=== PATIENT | female | born 1970 | race Caucasian/White ===

== ENCOUNTER → 2024-07-20 10:41 | Outpatient (BNVA) | payer BC, SELFPAY | PROVIDERS: PCP Family Medicine; Visit Provider Family Medicine ==

== ENCOUNTER → 2024-10-30 09:57 | Outpatient (BNVA) | payer BC, SELFPAY | PROVIDERS: PCP Family Medicine; Visit Provider Nurse Practitioner Family | DX: Z01.810 Encounter for preprocedural cardiovascular examination (principal); I35.0 Nonrheumatic aortic (valve) stenosis; Q23.81 Bicuspid aortic valve | CPT/HCPCS: 93005 ==

== ENCOUNTER 2024-12-26 08:21 | Outpatient (REF) | payer BC, SELFPAY ==
[2024-12-26 10:14] LABS: Anion Gap 11 (12-20); Blood Urea Nitrogen 13 mg/dL (9-16); Calcium 9.5 mg/dL (8.4-10.2); Carbon Dioxide 27 mmol/L (22-29); Chloride 110 mmol/L (96-108); Estimated Glomerular Filt Rate > 60; Glucose Fasting 90 mg/dL (60-99); Potassium 4.2 mmol/L (3.3-5.1); Sodium 144 mmol/L (135-145)
== END 2024-12-26 08:22 | disposition home or self-care (01) ==
LOC: HO.LAB 08:21
PROVIDERS: PCP Family Medicine; Visit Provider Family Medicine
DX: E03.9 Hypothyroidism, unspecified (principal)
CPT/HCPCS: 36415; 80048

== ENCOUNTER 2025-01-02 08:04 | Outpatient (REF) | payer BC, SELFPAY ==
[2025-01-02 08:47] LABS: Estimated Average Glucose 103 mg/dL; Hemoglobin A1C 129.0259 umol/L; Hemoglobin A1c % 5.2 % (<6.0)
[2025-01-02 09:55] LABS: Alanine Aminotransferase 12 U/L (0-31); Albumin Level 4.1 g/dL (3.5-5.0); Alkaline Phosphatase 66 U/L (39-117); Anion Gap 10 (12-20); Aspartate Amino Transferase 17 U/L (5-31); Bilirubin Total 0.7 mg/dL (0.0-1.0); Blood Urea Nitrogen 10 mg/dL (9-16); Calcium 9.3 mg/dL (8.4-10.2); Carbon Dioxide 27 mmol/L (22-29); Chloride 109 mmol/L (96-108); Estimated Glomerular Filt Rate > 60; Glucose Fasting 97 mg/dL (60-99); Potassium 3.9 mmol/L (3.3-5.1); Sodium 142 mmol/L (135-145); Total Protein 6.4 g/dL (6.5-8.0)
[2025-01-02 10:00] LABS: Free T4 (Free Thyroxine) 1.29 ng/dL (0.71-1.85); Thyroid Stimulating Hormone 0.03 uIU/mL (0.32-4.0)
[2025-01-04 04:13] LABS: Triiodothyronine T3 Total 111 ng/dL (76-181)
== END 2025-01-02 08:05 | disposition home or self-care (01) ==
LOC: HO.LAB 08:04
PROVIDERS: PCP Family Medicine; Visit Provider Family Medicine
DX: Z00.00 Encounter for general adult medical examination without abnormal findings (principal); E03.9 Hypothyroidism, unspecified; R73.01 Impaired fasting glucose
CPT/HCPCS: 36415; 80053; 83036; 84439; 84443; 84480

== ENCOUNTER 2025-01-04 12:40 | Outpatient (AMB) | payer BC, SELFPAY ==
--- NOTE | 2025-01-04 12:35 | MHC.PC.OV ---
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 Allergies No Known Allergies Allergy (Verified 01/04/25 12:36) Medication List - Last Reconciled 01/04/25 by Perry Holt MD aspirin (Ecotrin Low Strength) 81 mg PO DAILY atorvastatin 20 mg PO BEDTIME 30 days bisacodyl (Dulcolax (bisacodyl)) 10 mg (2 x 5 mg) PO BEDTIME bupropion HCl SR 200 mg PO DAILY 30 days citalopram 40 mg PO DAILY 90 days levothyroxine 88 mcg PO DAILY 90 days omeprazole 40 mg PO DAILY PRN ondansetron HCl 4 mg PO Q8H PRN polyethylene glycol 3350 (Miralax) 238 grams PO ONCE Zepbound (tirzepatide (weight loss)) 5 mg (0.5 mL) subcut QWEEK NS Zepbound (tirzepatide (weight loss)) 2.5 mg (0.5 mL) subcut QWEEK NS Tobacco use date assessed: 11/11/23 Dental Screening Dental Screen Date: 11/11/23 HPI Hypothyroidism (Adult) HPI Details Patient?presents?to?follow-up?hypothyroidism. TSH?is?still?suppressed?since?increasing levothyroxine?to?100?mcg?daily?(700?mcg?weekly) from?88?mcg?daily (616?mcg?weekly) Will?switch?her?back?to?88?mcg?tablets?and?she?will?take?1.5 tablets?on Saturdays (660?mcg?weekly). A1c?was?5.9%?and?she?has?started Zepbound?for?weight?control.??She?has?lost?over?19?lb. A1c?now?5.2%. Patient?also?notes?worsening?depression?and?anxiety. She?is?on?bupropion?and?citalopram. She?would?like?a?referral?to?discuss?other?medication?options. [facility] Medical History (Updated 12/04/24 @ 09:35 by Prema Yang) GERD (gastroesophageal reflux disease) B-cell lymphoma Surgical History (Updated 12/04/24 @ 09:35 by Prema Yang) History of tooth extraction [place] teeth extracted History of section History of partial hysterectomy Family History (System 12/04/24 @ 09:35 by Prema Yang) Father No problems noted. Mother Diabetes mellitus Liver cancer Brother No problems noted. Brother No problems noted. Brother No problems noted. Brother No problems noted. Sister No problems noted. Daughter No problems noted. Daughter No problems noted. Daughter No problems noted. 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 Current occupational exposures/hazards: No Cognitive needs: No Hearing needs: No Vision needs: No Female Reproductive History Menstrual Age of Menarche: 12 Questionnaire Thrive Questionnaire Date Thrive assessed: 09/25/24 GUSTAVO-7 AMB Questionnaire GUSTAVO-7 Date GUSTAVO - 7 assessed: 09/25/24 Source: Developed by Drs. Frank Banegas, Leatha Emmanuel, Enrique Iraheta and colleagues, with an educational becky from [employer]. Review of Systems Const Denies chills, Denies fatigue, Denies fever(s), Denies headache(s) and Denies weakness ENT Denies dizziness and Denies headache(s) Card Denies chest pain, Denies lightheadedness, Denies dyspnea and Denies other (Palpitations) Resp Denies cough, Denies dyspnea, Denies wheezing and Denies other ( shortness of breath) Musc Denies numbness and Denies tingling Neuro Denies dizziness, Denies headache(s), Denies numbness, Denies tingling, Denies paresthesias and Denies weakness Psych Denies anxiety and Denies depression Endo Denies fatigue Aller/Immun Denies wheezing Physical exam (Primary Care) Tobacco/Smoking Status: Tobacco use Status Tobacco use date assessed 11/11/23 01/04/25 12:37 Patient Tobacco Use Status Former Tobacco user 01/04/25 12:37 Tobacco use type Cigarette 01/04/25 12:37 e-Cigarette/Vaping Use Never Used 01/04/25 12:37 Thrive Assessment: Date of Thrive Assessment Date Thrive assessed 09/25/24 01/04/25 12:37 Telehealth Telehealth Telehealth Platform: Telephone Location of provider rendering services: practice address Location of patient: address on file Patient Identification confirmed using: Name, : Yes Telehealth method: voice only Patient verbally consented to treatment: Yes Patient verbally consented to billing insurance company: Yes Patient informed of any privacy concerns related to visit: Yes Minutes spent on Phone/Video with Pt.: 6 Coding Level of Care Code Tele Est Pt Level 2 (58855) Diagnoses Pre-diabetes R73.03 Obese E66.9 Hypothyroidism E03.9 Assessment & Plan Assessment & Plan (1) Pre-diabetes: Code(s): R73.03 - Prediabetes Category: Medical Plan: A1c?improved?from?5.9%?to?5.2%?on?Zepbound Continue?current?medication Continue?diet?and?exercise (2) Obese: Code(s): E66.9 - Obesity, unspecified Category: Medical Plan: Improving?on?Zepbound?and?she?will?continue?this (3) Hypothyroidism: Code(s): E03.9 - Hypothyroidism, unspecified Category: Medical Plan: TSH?is?still?suppressed?since?increasing levothyroxine?to?100?mcg?daily?(700?mcg?weekly) from?88?mcg?daily (616?mcg?weekly) Will?switch?her?back?to?88?mcg?tablets?and?she?will?take?1.5 tablets?on Saturdays (660?mcg?weekly). Orders: Orders Comprehensive [place]. Panel Fast Today Z00.00 - Encounter for general adult medical examination without abnormal findings Free T4 (Free Thyroxine) Today E03.9 - Hypothyroidism, unspecified Triiodothyronine T3 Total Today E03.9 - Hypothyroidism, unspecified Complete Blood Count Auto Diff Today Z00.00 - Encounter for general adult medical examination without abnormal findings Microalbumin, Random (w Creat) Today I10 - Essential (primary) hypertension Lipid Panel Today Z00.00 - Encounter for general adult medical examination without abnormal findings UA CC w/rflx Micro + Cult Today Z00.00 - Encounter for general adult medical examination without abnormal findings TSH reflex Free T4 Today Z00.00 - Encounter for general adult medical examination without abnormal findings Referrals Psychiatry Outpatient Consultation Service F32.A - Depression, unspecified, F41.9 - Anxiety disorder, unspecified Medications: Changed From levothyroxine 100 mcg PO DAILY 30 days 30 tabs 1RF To levothyroxine One tab daily Sánchez-Fr and 1.5 tabs on Sat. 88 mcg PO DAILY 90 days 92 tabs 1RF
== END 2025-01-04 17:05 | disposition home or self-care (01) ==
LOC: HO.HMCFM 12:40
PROVIDERS: PCP Family Medicine; Visit Provider Family Medicine
DX: R73.03 Prediabetes (principal); E66.9 Obesity, unspecified; E03.9 Hypothyroidism, unspecified

== ENCOUNTER → 2025-01-04 12:40 | Outpatient (BNVA) | payer BC, SELFPAY | PROVIDERS: PCP Family Medicine; Visit Provider Family Medicine | DX: Z13.89 Encounter for screening for other disorder (principal) ==

== ENCOUNTER 2025-02-04 14:59 | Outpatient (AMB) | payer BC, SELFPAY ==
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
== END 2025-02-04 15:53 | disposition home or self-care (01) ==
LOC: HO.HOP 14:59
PROVIDERS: PCP Family Medicine; Visit Provider Clinical Nurse Specialist Psychiatric/Mental Health
DX: F33.1 Major depressive disorder, recurrent, moderate (principal); F41.1 Generalized anxiety disorder; F41.0 Panic disorder [episodic paroxysmal anxiety]
CPT/HCPCS: 90792

== ENCOUNTER → 2025-02-04 14:59 | Outpatient (BNVA) | payer BC, SELFPAY | PROVIDERS: PCP Family Medicine; Visit Provider Clinical Nurse Specialist Psychiatric/Mental Health | DX: F33.1 Major depressive disorder, recurrent, moderate (principal); F41.1 Generalized anxiety disorder; F41.0 Panic disorder [episodic paroxysmal anxiety]; Z79.899 Other long term (current) drug therapy | CPT/HCPCS: 90792 ==

== ENCOUNTER 2025-02-09 16:40 | Outpatient (AMB) | payer BC, SELFPAY ==
[2025-02-09 14:54] VITALS: BMI 28.7
--- NOTE | 2025-02-09 16:21 | MHC.PC.OV ---
Vital Signs 02/09/25 14:54 Height 5 ft 3 in Weight 162 lb BMI 28.7 Intake Visit Reasons: Medication Follow up Allergies No Known Allergies Allergy (Verified 01/04/25 12:36) Tobacco use date assessed: 11/11/23 Dental Screening Dental Screen Date: 11/11/23 HPI HPI Comments History of Present Illness Details 55-year-old female with past medical history of anxiety, obesity presenting for follow up Obesity: Doing great on zepbound. Weight is down to 162 pounds today. Patient previously had tried decreased calorie diet, exercise, weight watchers, low carb to lose weight without any sustained or significant weight loss. No SE. No personal/family history of thyroid cancer ROS see HPI PHYSICAL EXAM: Telehealth REPLACED BY [facility] Medical History GERD (gastroesophageal reflux disease) B-cell lymphoma Surgical History History of tooth extraction [place] teeth extracted History of section History of partial hysterectomy Family History (Updated 02/04/25 @ 15:58 by Rosy Rojas APRN) Father No problems noted. Mother Diabetes mellitus Liver cancer Brother No problems noted. Brother No problems noted. Brother No problems noted. Brother No problems noted. Sister No problems noted. Daughter Depression Daughter No problems noted. Daughter No problems noted. Social History Housing: Apartment Patient Tobacco Use Status: Former Tobacco user Tobacco use type: Cigarette e-Cigarette/Vaping Use: Never Used Second Hand Smoke Exposure: No service: No Current occupational status: employed Current occupation: longterm work. Current occupational exposures/hazards: No Cognitive needs: No Hearing needs: No Vision needs: No Female Reproductive History Menstrual Age of Menarche: 12 Questionnaire Thrive Questionnaire Date Thrive assessed: 09/25/24 GUSTAVO-7 AMB Questionnaire GUSTAVO-7 Date GUSTAVO - 7 assessed: 09/25/24 Source: Developed by Drs. Frank Banegas, Leatha Emmanuel, Enrique Iraheta and colleagues, with an educational becky from [employer]. Physical exam (Primary Care) Tobacco/Smoking Status: Tobacco use Status Tobacco use date assessed 11/11/23 02/09/25 16:22 Patient Tobacco Use Status Former Tobacco user 02/09/25 16:22 Tobacco use type Cigarette 02/09/25 16:22 e-Cigarette/Vaping Use Never Used 02/09/25 16:22 Thrive Assessment: Date of Thrive Assessment Date Thrive assessed 09/25/24 02/09/25 16:22 Telehealth Telehealth Telehealth Platform: [facility] Location of provider rendering services: practice address Location of patient: address on file Patient Identification confirmed using: Name, : Yes Telehealth method: voice only Patient verbally consented to treatment: Yes Patient verbally consented to billing insurance company: Yes Patient informed of any privacy concerns related to visit: Yes Minutes spent on Phone/Video with Pt.: 21 Coding Level of Care Code Tele Est Pt Level 3 (78442) Diagnoses Obesity (BMI 30-39.9) E66.9 Depression with anxiety F41.8 Assessment & Plan Assessment & Plan (1) Obesity (BMI 30-39.9): Code(s): E66.9 - Obesity, unspecified Category: Medical (2) Depression with anxiety: Code(s): F41.8 - Other specified anxiety disorders Category: Medical Plan Continues to do great on zepbound. Her goal weight is 140lb. Recommend continuing medications Medications: New Zepbound (tirzepatide (weight loss)) 7.5 mg (0.5 mL) subcut QWEEK 6 mL 1RF NS E66.9 - Obesity, unspecified, E78.5 - Hyperlipidemia, unspecified Zepbound (tirzepatide (weight loss)) 7.5 mg (0.5 mL) subcut QWEEK 6 mL 1RF NS E66.9 - Obesity, unspecified, E78.5 - Hyperlipidemia, unspecified Discontinued Zepbound (tirzepatide (weight loss)) Discontinued Reason: Doctor's Order 5 mg (0.5 mL) subcut QWEEK 6 mL 3RF NS E66.9 - Obesity, unspecified Zepbound (tirzepatide (weight loss)) for 4 weeks Discontinued Reason: Doctor's Order 2.5 mg (0.5 mL) subcut QWEEK 2 mL 3RF NS E66.9 - Obesity, unspecified, E78.5 - Hyperlipidemia, unspecified, R73.03 - Prediabetes
== END 2025-02-09 17:05 | disposition home or self-care (01) ==
LOC: HO.HMCFM 16:40
PROVIDERS: PCP Family Medicine; Visit Provider Internal Medicine
DX: E66.9 Obesity, unspecified (principal); F41.8 Other specified anxiety disorders